=== PATIENT | female | born 1990 | race American Indian/Alaskan Native ===

== ENCOUNTER 2016-11-25 20:21 | Emergency (ER) | payer OTHER ==
[2016-11-25 21:39] VITALS: BP 112/74; PULSE 79; RESP 20; TEMP 99.7; O2SAT 100
[2016-11-25 22:25] LABS: RBC URINE 65 /hpf (0-3); TRANSITIONAL EPITHIAL < 1 /hpf (0-3); URINE BACTERIA FEW (<OCC); URINE BILIRUBIN NEGATIVE (NEGATIVE); URINE BLOOD 3+ (NEGATIVE); URINE COLOR Amber (YELLOW); URINE GLUCOSE (UA) NORMAL (Normal); URINE KETONE 1+ mg/dL (NEGATIVE); URINE LEUKOCYTE ESTERASE 1+ Leu/uL (Negative); URINE PROTEIN 1+ mg/dL (NEGATIVE); URINE UROBILINOGEN NORMAL mg/dL (0.2-1.0); WBC URINE 7 /hpf (0-5)
--- NOTE | 2016-11-25 22:35 | C.PDOC ---
History Of Present Illness The patient, a 26 y/o female, presents to the ED for evaluation of vaginal burning during urination and swelling to her groin which began around 3 days ago. Patient states she has a history of Urinary Tract Infection in the past but notes her current symptoms are different from prior. Patient also reports a history of gonnorhea, for which she underwent treatment last year. Patient denies fever, chills, nausea, vomiting, vaginal discharge/bleeding, and back pain. Time Seen by Provider: 11/25/16 21:38 Chief Complaint (Nursing): Female Genitourinary History Per: Patient History/Exam Limitations: no limitations Onset/Duration Of Symptoms: Days (3) Current Symptoms Are (Timing): Still Present Quality Of Discomfort: Burning Associated Symptoms: denies: Fever, Chills, Nausea, Vomiting, Back Pain Alleviating Factors: None Additional History Per: Patient Abnormal Vaginal Bleeding: No Past Medical History Reviewed: Historical Data, Nursing Documentation, Vital Signs Vital Signs: Last Vital Signs Temp 99.7 F H 11/25/16 21:35 Pulse 79 11/25/16 21:35 Resp 20 11/25/16 21:35 BP 112/74 11/25/16 21:35 Pulse Ox 100 11/28/16 21:59 - Medical History PMH: No Chronic Diseases Surgical History: No Surg Hx Family History: States: Unknown Family Hx - Social History Hx Alcohol Use: No Hx Substance Use: No - Immunization History Hx Tetanus Toxoid Vaccination: No Hx Influenza Vaccination: No Hx Pneumococcal Vaccination: No Review Of Systems Except As Marked, All Systems Reviewed And Found Negative. Constitutional: Negative for: Fever, Chills Gastrointestinal: Negative for: Nausea, Vomiting Genitourinary: Positive for: Other (+vaginal burning with urination ). Negative for: Vaginal Discharge, Vaginal Bleeding Musculoskeletal: Negative for: Back Pain Skin: Positive for: Other (+swelling to groin region ) Physical Exam - Physical Exam Appears: Non-toxic, No Acute Distress Skin: Normal Color, Warm, Dry Head: Atraumatic Eye(s): bilateral: Normal Inspection, EOMI Nose: Normal Oral Mucosa: Moist Neck: Supple Lymphatic: Inguinal Node Tenderness Chest: Symmetrical, No Deformity, No Tenderness Cardiovascular: Rhythm Regular, No Murmur Respiratory: Normal Breath Sounds, No Rales, No Rhonchi, No Wheezing Gastrointestinal/Abdominal: Soft, No Tenderness, No Guarding, No Rebound Back: Normal Inspection, No Vertebral Tenderness, No Paraspinal Tenderness Pelvic: No Normal Speculum Exam (pt refused speculum exam ), Other (+vaginal ulcerations) Extremity: Normal ROM, Capillary Refill (less than 2 seconds ) Neurological/Psych: Oriented x3, Normal Speech, Normal Cognition Gait: Steady ED Course And Treatment O2 Sat by Pulse Oximetry: 100 (on RA) Pulse Ox Interpretation: Normal Progress Note: Patient refused internal pelvic inspection during physical examination. Labs ordered and reviewed. Patient received Zovirax PO. UA evaluated: No nitrates. Few bacteria and wBC. No Urinary frequency. CLincal cause for painful urination with ulceration. Pt was informed she will be treated for genital herpes. If symptoms persist or owrsen instructed to return to ER . Alos instructed to follow up with STD results in 3-5 days. Pt advised to follow up with her PMD within 1-2 days for further evaluation. Reassessment Condition: Improved Disposition - Disposition Disposition: HOME/ ROUTINE Disposition Time: 22:31 Condition: GOOD Additional Instructions: Follow up with primary medical doctor in 1-3 days without fail for further evaluation. Take medications as prescribed. Return to the emergency department at any time if symptoms persist or worsen. Prescriptions: Acyclovir [Zovirax] 400 mg PO TID 10 Days Instructions: Genital Herpes Simplex (ED) - Clinical Impression Clinical Impression: Genital herpes - PA / DIRECTOR STRATEGIC PLANNING / Resident Statement MD/DO has reviewed & agrees with the documentation as recorded. - Scribe Statement The provider has reviewed the documentation as recorded by the Scribe (Raven Su) All medical record entries made by the Scribe were at my direction and personally dictated by me. I have reviewed the chart and agree that the record accurately reflects my personal performance of the history, physical exam, medical decision making, and the department course for this patient. I have also personally directed, reviewed, and agree with the discharge instructions and disposition.
== END 2016-11-25 22:50 | disposition home or self-care (01) ==
LOC: C.ER 20:21
DX: B00.9 Herpesviral infection, unspecified (principal)